=== PATIENT | female | born 1960 | race Caucasian/White ===

== ENCOUNTER 2019-11-05 13:15 | Outpatient (CLI) | payer MEDICARE, SELFPAY ==
--- NOTE | ~2019-11-05 | DEXA_ITS ---
BMD(1) Young-Adult(2) Age-Matched(3) Region (g/cm2) T-score Z-score WHO Classification L1 1.042 -0.8 0.2 Normal L2 1.307 0.8 1.8 Normal L3 1.198 -0.1 0.9 Normal L4 1.135 -0.6 0.4 Normal L1-L4 (L2,L3) 1.095 -0.7 0.3 Normal Trend: L4 Change vs Change vs Measured Age BMD(1) Baseline Previous Date (years) (g/cm2) (%) (%) 11/05/2019 59.6 1.135 baseline - 1 - Statistically 68% of repeat scans fall within 1SD (+- 0.030 g/cm2 for AP Spine L4) 2 - [place] (Combined NHANES (ages 20-30) / OfferWire (ages 20-40)) AP Spine Reference Population (v112) 3 - Matched for Age, Weight (females 25-100 kg), Ethnic 11 - World Health Organization - Definition of Osteoporosis and Osteopenia for Women: Normal = T-score at or above -1.0 SD; Osteopenia = T-score between -1.0 and -2.5 SD; Osteoporosis = T-score at or below -2.5 SD; (WHO definitions only apply when a young healthy Women reference database is used to determine T-scores.) Printed: 11/05/2019 2:05:26 PM (13.60)76:3.00:50.00:12.0 0.00:8.52 0.60x1.05 21.1:%Fat=31.7% 0.00:0.00 0.00:0.00 Verify bone is centered and there is sufficient tissue next to bone. Filename: [id number] Scan Mode: Standard;OneScan 37.0 24/7 Card [id number] BMD(1) Young-Adult(2,7) Age-Matched(3) Region (g/cm2) T-score Z-score WHO Classification Neck Left 0.779 -1.9 -0.7 Osteopenia Right 0.804 -1.7 -0.6 Osteopenia Mean 0.791 -1.8 -0.7 Osteopenia Difference 0.025 0.2 0.2 - Total Left 0.872 -1.1 -0.3 Osteopenia Right 0.858 -1.2 -0.4 Osteopenia Mean 0.865 -1.1 -0.3 Osteopenia Difference 0.014 -0.1 -0.1 - Hip [place] Length Comparison (mm) (Right = 105.6 mm) (Mean = 107.6 mm) (Left = 105.0 mm) Trend: Total Mean Change vs Change vs Measured Age BMD(1) Baseline Previous Date (years) (g/cm2) (%) (%) 11/05/2019 59.6 0.865 -12.4* -12.4* 07/16/2011 51.3 0.987 baseline - * - Indicates significant change based on 95% confidence interval. 1 - Statistically 68% of repeat scans fall within 1SD (+- 0.010 g/cm2 for DualFemur Total) 2 - [place] (Combined NHANES (ages 20-30) / OfferWire (ages 20-40)) Femur Reference Population (v112) 3 - Matched for Age, Weight (females 25-100 kg), Ethnic 7 - DualFemur Total T-score difference is 0.1. Asymmetry is None. 11 - World Health Organization - Definition of Osteoporosis and Osteopenia for Women: Normal = T-score at or above -1.0 SD; Osteopenia = T-score between -1.0 and -2.5 SD; Osteoporosis = T-score at or below -2.5 SD; (WHO definitions only apply when a young healthy Women reference database is used to determine T-scores.) Printed: 11/05/2019 2:05:26 PM (13.60); Filename: [id number]; Right Femur; 17.1:%Fat=25.7%; Neck Angle (deg)= 56; Scan Mode: Standard 37.0 uGy; Left Femur; 17.6:%Fat=25.0%; Neck Angle (deg)= 58; Scan Mode: Standard 37.0 uGy Emprivo [id number] Dear Carter Hernandez, Your patient Kamilah Jeffery completed a BMD test on 11/05/2019 using the Emprivo DXA System (analysis version: 13.60) manufactured by [employer]. The following summarizes the results of our evaluation. PATIENT BIOGRAPHICAL: Name: Kamilah Jeffery
== END 2019-11-05 13:16 | disposition home or self-care (01) ==
PROVIDERS: PCP Internal Medicine; Visit Provider Internal Medicine
DX: M85.80 Other specified disorders of bone density and structure, unspecified site (principal); Z78.0 Asymptomatic menopausal state
CPT/HCPCS: 77080

== ENCOUNTER 2020-02-11 14:24 | Outpatient (CLI) | payer MEDICARE, SELFPAY ==
--- NOTE | ~2020-02-11 | XR_ITS ---
EXAMINATION: XR hip LT min 2V DATE: 02/11/2020 14:43 INDICATION: Left hip pain TECHNIQUE: Anteroposterior and frog-leg lateral views of the left hip were obtained. COMPARISON: None. FINDINGS: Consistent with old fracture deformity along the left pubic body and left superior and inferior pubic rami. Alignment remains essentially anatomic. No acute fracture. No suggested avascular necrosis. Le ft hip joint space is normal. Multiple phleboliths and surgical clips in the pelvis. IMPRESSION: 1. No acute osseous abnormality with normal left hip joint space. Reviewed, dictated and finalized at location A.
--- NOTE | ~2020-02-11 | XR_ITS ---
EXAMINATION: XR lumbar spine 2-3V DATE: 02/11/2020 14:43 INDICATION: Low back pain. TECHNIQUE: Anteroposterior and lateral views of the lumbar spine, and cone-down lateral view of the l umbosacral junction were obtained. COMPARISON: 03/05/2019 FINDINGS: Again seen is L3-L4 posterior spinal fusion with bilateral plate and pedicle screw fixations. 15 degr ee dextroscoliosis measured between T10 and L4. 2 mm anterolisthesis L3 on L4 and L4 on L5. Vertebral body heights are normal. Mild disc height loss at L2-L3 and L4-L5. Reduction of moderate to severe b ilateral lower lumbar facet osteoarthritis. Sacrum and bilateral sacroiliac joints are normal. Multip le surgical clips in the pelvis. IMPRESSION: 1. 15 degree thoracolumbar dextroscoliosis with unchanged instrumented L2-L3 posterior spinal fusion. 2. Slight progression in moderate lumbar spondylosis. Reviewed, dictated and finalized at location A. IMPRESSION: 1. 15 degree thoracolumbar dextroscoliosis with unchanged instrumented L2-L3 po sterior spinal fusion. 2. Slight progression in moderate lumbar spondylosis.
== END 2020-02-11 14:25 | disposition home or self-care (01) ==
LOC: CHSIMG 14:26
PROVIDERS: PCP Internal Medicine; Visit Provider Internal Medicine
DX: M54.9 Dorsalgia, unspecified (principal); M25.552 Pain in left hip
CPT/HCPCS: 72100; 73502

== ENCOUNTER 2020-02-13 13:48 | Outpatient (RCR) | payer MEDICARE, SELFPAY ==
--- NOTE | 2020-02-13 14:42 | PTOPEVAL ---
Thank you for referring Kamilah Jeffery to [facility]. Please review, sign, date and return this plan of care QUIQUE. I agree with and certify that the following plan of care is medically necessary. Referring Physician Date Admitting Provider: Attending Provider: Carter Hernandez MD Referring Provider: *PT Outpatient Evaluation Start: 02/13/20 14:01 Freq: Status: Active Protocol: Document 02/13/20 14:02 [facility] (Rec: 02/13/20 14:34 DAN[facility]A [email or web address]) Evaluation Information Problem Diagnosis back pain with left radiculopathy Onset 01/22/20 Cause oswestry=64% disability Subjective Information Pt. reports several weeks ago Query Text:As Reported By Patient/ she was mowing grass. She Family reports she was mowing a steep ditch and shortly after developed pain into the low back and into the left l.e. down to the ankle. She reports constant sensation of the leg feeling asleep. She reports pain is increased with standing. She reports that she can only walk or stand for 15-20 minute before pain causes her to sit. She reports that she was a very active person prior to injuring herself. Pt. reports that her goal is to decrease her low back pain and left leg pain. Diagnostic Tests X-Rays For This Problem Yes Prior Level of Function Activity Level (Last 3 Months) Occupation unemployed Hand Dominance Right Activity of Daily Living Ability Independent Indoor/Home Mobility Independent Community Mobility Independent Stairs Ability Independent Functional Cognition (Planning, Shopping Independent , Taking Medications) Cooking Yes Cleaning Yes Laundry Yes Shopping Yes Driving Yes Pain Assessment Pain Scale Pain Scale Used Numeric (1 - 10) Self Report Pain Assessment Lower Back Reported Pain Level 8 Pain Description Aching,Numbness,Sharp Pain Radiation Left Leg Pain Frequency Continuous Pain Aggravating Factors Walki
--- NOTE | 2020-03-14 11:27 | PTOPEVAL ---
Thank you for referring Kamilah Jeffery to [facility]. Please review, sign, date and return this plan of care QUIQUE. I agree with and certify that the following plan of care is medically necessary. Referring Physician Date Admitting Provider: Attending Provider: Carter Hernandez MD Referring Provider: *PT Outpatient Evaluation Start: 02/13/20 14:01 Freq: Status: Active Protocol: Document 03/14/20 10:00 [facility] (Rec: 03/14/20 11:23 [facility] [email or web address]) Therapy Assessment Status Assessment Status Assessment Status Re-evaluation Evaluation Information Problem Diagnosis low back pain Additional Evaluation Detail lefs = 35% oswestry = 50% Subjective Information patient reports she feels Query Text:As Reported By Patient/ Alright this date. she Family reports she has pain in the low back and down the L LE that grabs in her leg with increased activities. she reports she feels 50% improved or better since her initial evaluation. Pain Assessment Timing of Pain Assessment Timing of Pain Assessment Assessment Pain Scale Pain Scale Used Numeric (1 - 10) Self Report Pain Assessment Lower Back Reported Pain Level 4 Lowest Pain Intensity 4 Greatest Pain Intensity 7 Pain Score Pain Score 4: Self Report Cervical and Lumbar ROM Lumbar ROM Lumbar Flexion Active Ankle Query Text:Hands to: Lumbar Extension (0-40) 10 Query Text:Active in Degrees Lumbar Lateral Flexion Right (0-40) 40 Query Text:Active in Degrees Lumbar Lateral Flexion Left (0-40) 40 Query Text:Active in Degrees Lower Extremity Muscle Strength Testing General Lower Extremity Strength Gross Lower Extremity Strength R hip flex = 4+/5, L hip flex = 4/5. R hip abd = 4-/5, L hip abd = 4+/5. B hip ext = 4-/5 B knee ext = 5/5 R knee flex = 5/5, L knee flex = 4+/5 Muscle Length Testing Muscle Length Testing Piriformis w/Hip Flexion >90 Degrees (R) WFL,(L) WFL Left Hamstring Length 10 Query Text:(90 - 90 Position) Right Hamstring Length 10 Query Text:(90 - 90 Position) Palpation Assessment Palpation Palpation moderate tightness of the bilateral lumbar paraspinals patient presents with
== END 2020-03-18 23:59 | disposition home or self-care (01) ==
LOC: CHSPT 13:48
PROVIDERS: PCP Internal Medicine; Visit Provider Internal Medicine
DX: M54.9 Dorsalgia, unspecified (principal); M54.17 Radiculopathy, lumbosacral region
CPT/HCPCS: 97014; 97110; 97140; 97161; G0283

== ENCOUNTER 2020-03-25 07:17 | Outpatient (CLI) | payer MEDICARE, SELFPAY ==
--- NOTE | ~2020-03-25 | MR_ITS ---
EXAMINATION: MR lumbar spine wo con DATE: 03/25/2020 08:16 INDICATION: Low back pain. TECHNIQUE: Magnetic resonance imaging (MRI) of the lumbar spine was performed without intravenous con trast. Sequences included sagittal T2-weighted FSE, sagittal T2-weighted FS FSE, sagittal T1-weighted FSE, and axial T2-weighted FSE. COMPARISON: Lumbar spine MRI 04/11/2013 FINDINGS: There is 3 mm anterolisthesis of L3 on L4 and L4 on L5. There is a Schmorl's node of L4 inf erior endplate. There are changes of posterior fusion procedure at L2-L3 with pedicle screws. There i s moderately decreased disc height at L2-L3 and mildly decreased disc height at L3-L4 and L4-L5. The distal spinal cord signal intensity is normal. The conus medullaris is at L1. The following disc leve ls are specifically discussed: L1-L2: The disc does not extend beyond the endplate margin. There is mild bilateral facet joint osteo arthritis. There is no neural foraminal stenosis. There is no central canal stenosis. L2-L3: The disc is mildly bulging. There is mild right facet joint hypertrophy. There is mild right n eural foraminal stenosis. There is no central canal stenosis. L3-L4: The disc is bulging and has an annular fissure. There is severe bilateral facet joint osteoart hritis. There is mild bilateral neural foraminal stenosis. There is moderate central canal stenosis. L4-L5: The disc is bulging with superimposed left foraminal extrusion. There is severe bilateral face t joint osteoarthritis. There is moderate bilateral neural foraminal stenosis. There is mild central canal stenosis. L5-S1: The disc is bulging and has an annular fissure. There is mild bilateral facet joint osteoarthr itis. There is mild bilateral neural foraminal stenosis. There is no central canal stenosis. IMPRESSION: 1. Moderate lumbar spondylosis with interval worsening at L3-L4 and L4-L5. 2. Posterior fusion procedure at L2-L3. Reviewed, dictated and finalized at location A.
== END 2020-03-25 07:18 | disposition home or self-care (01) ==
LOC: CHSIMG 07:18
PROVIDERS: PCP Internal Medicine; Visit Provider Nurse Practitioner Family
DX: M54.5 Low back pain (principal); M54.16 Radiculopathy, lumbar region
CPT/HCPCS: 72148

== ENCOUNTER 2021-08-13 10:01 | Outpatient (CLI) | payer MEDICARE, SELFPAY ==
--- NOTE | ~2021-08-13 | XR_ITS ---
EXAMINATION:XR_[id number]_CR DATE: 08/13/2021 10:24 INDICATION: Neck pain TECHNIQUE: AP and lateral views of the cervical spine are obtained. COMPARISON: CT, 09/08/2016 FINDINGS: There are changes of anterior fusion at C6-7. Interbody devices are present at C5-6 and C6- 7. There are 2 mm of stable retrolisthesis of C5 on C6. The vertebral body heights are maintained. Th ere is no fracture. There is loss of intervertebral disc space height at C3-4. The odontoid is intact . Prevertebral soft tissues are normal. IMPRESSION: 1. Changes of anterior fusion and mild spondylosis without acute findings. Reviewed, dictated and finalized at location A. GER EXCHANGE
[2021-08-13 10:59] LABS: Alanine Aminotransferase 17 U/L (14-59); Albumin Level 3.9 g/dL (3.4-5.0); Alkaline Phosphatase 70 U/L (46-116); Anion Gap 10 mmol/L (8-16); Aspartate Amino Transferase 15 U/L (15-37); Bilirubin,Total 0.4 mg/dL (0.00-1.00); Blood Urea Nitrogen 16 mg/dL (7-18); Calcium 9.2 mg/dL (8.5-10.1); Carbon Dioxide 30 mmol/L (21-32); Chloride 100 mmol/L (98-108); Cholesterol 215 mg/dL (0-200); Estimated Glomerular Filt Rate 53; Glucose 97 mg/dL (70-99); HDL Direct 49 mg/dL (40-60); LDL Cholesterol Calculated 141 mg/dL (<130); Osmolality Calculated 291 mOsm/kg (285-295); Potassium 4.3 mmol/L (3.5-5.1); Sodium 140 mmol/L (136-145); Total Protein 6.7 g/dL (6.4-8.2); Triglycerides 126 mg/dL (0-150)
== END 2021-08-13 10:02 | disposition home or self-care (01) ==
PROVIDERS: PCP Internal Medicine; Visit Provider Internal Medicine
DX: E78.5 Hyperlipidemia, unspecified (principal); M54.2 Cervicalgia
CPT/HCPCS: 36415; 72040; 80053; 80061

== ENCOUNTER 2021-08-18 12:39 | Outpatient (RCR) | payer MEDICARE, MEDICAID, SELFPAY ==
--- NOTE | 2021-08-18 14:02 | PTOPEVAL ---
Thank you for referring Kamilah Jeffery to [facility].? The patient is scheduled to be seen for therapy? ____x/week for ___ weeks. Please review, sign, date and return this plan of care QUIQUE. I agree with and certify that the following plan of care is medically necessary. Referring Physician Date Admitting Provider: Attending Provider: Carter Hernandez MD Referring Provider: *PT Outpatient Evaluation Start: 08/18/21 13:04 Freq: Status: Active Protocol: Document 08/18/21 13:05 [facility] (Rec: 08/18/21 14:02 [facility] [email or web address]) Therapy Assessment Status Assessment Status Assessment Status Evaluation Evaluation Information Problem Diagnosis neck pain Onset 06/18/21 Additional Evaluation Detail NDI - 40% functionally declined Subjective Information patient reports she has been Query Text:As Reported By Patient/ having shoulder and neck pain Family for about 2 months. she reports she noticed having pain in the neck and shoulders after raking her yard. she reports other than that no other change in activity or specific injury. she reports she has also been very stressed lately due to some personal and family medical issues. she reports she has increased pain and symptoms when she is stressed out. she reports she has tingles in the L shoulder. patient reports difficulty with turning neck/ head to look behind her (ie. while driving). Prior Level of Function Comments Additional Prior Level of Function prior to a few months ago, no Comments issues. she reports she does have a history of anterior cervical fusion back in 2009. Pain Assessment Timing of Pain Assessment Timing of Pain Assessment Assessment Pain Scale Pain Scale Used Numeric (1 - 10) Self Report Pain Assessment Neck Reported Pain Level 5 Pain Radiation Left Shoulder Pain Frequency Acute,Continuous Pain Score Pain Score 5: Self Report Interventions Used Interventions Used By Clinicians Activity or ADL's,Education, Exercise Cervical and Lumbar ROM Cervical ROM Cervical Flexion (0-60) 43 Query Text:Active in Degrees
== END 2021-09-02 23:59 | disposition home or self-care (01) ==
LOC: CHSPT 12:39
PROVIDERS: PCP Internal Medicine; Visit Provider Internal Medicine
DX: M54.2 Cervicalgia (principal)
CPT/HCPCS: 97014; 97110; 97140; 97161; G0283

== ENCOUNTER 2021-11-07 07:14 | Outpatient (CLI) | payer MEDICARE, MEDICAID, SELFPAY ==
[2021-11-07 07:36] LABS: Basophils Absolute Auto 0.06 K/mm3 (0.00-0.10); Basophils Percent Auto 0.8 % (0.0-1.0); Eosinophils Absolute Auto 0.17 K/mm3 (0.02-0.50); Eosinophils Percent Auto 2.3 % (1.0-6.0); Hematocrit 40.4 % (35.0-49.0); Hemoglobin 13.1 g/dL (12.0-15.0); Immature Granulocyte Absolute 0.02 K/mm3 (0.00-0.00); Immature Granulocyte Percent A 0.3 % (0.0-0.0); Lymphocytes Absolute Auto 3.01 K/mm3 (1.10-4.50); Lymphocytes Percent Auto 39.9 % (18.0-42.0); Mean Corpuscular HGB Conc 32.4 g/dL (32.0-36.0); Mean Corpuscular Hemoglobin 29.6 pg (27.0-31.0); Mean Corpuscular Volume 91.2 fL (78.0-102.0); Mean Platelet Volume 9.7 fl (9.2-11.8); Monocytes Absolute Auto 0.62 K/mm3 (0.10-0.90); Monocytes Percent Auto 8.2 % (2.0-11.0); Neutrophils Absolute Auto 3.7 K/mm3 (1.7-7.2); Neutrophils Percent Auto 48.5 % (50.0-70.0); Platelet Count Result 313 K/mm3 (150-420); Red Blood Count 4.43 M/mm3 (4.20-5.40); Red Cell Distribution Width 12.7 % (11.6-14.4); White Blood Count 7.5 K/mm3 (4.8-10.8)
[2021-11-07 08:04] LABS: Alanine Aminotransferase 21 U/L (14-59); Albumin Level 3.7 g/dL (3.4-5.0); Alkaline Phosphatase 64 U/L (46-116); Anion Gap 12 mmol/L (8-16); Aspartate Amino Transferase 13 U/L (15-37); Bilirubin,Total 0.3 mg/dL (0.00-1.00); Blood Urea Nitrogen 14 mg/dL (7-18); Calcium 9.2 mg/dL (8.5-10.1); Carbon Dioxide 27 mmol/L (21-32); Chloride 103 mmol/L (98-108); Cholesterol 227 mg/dL (0-200); Estimated Glomerular Filt Rate 54; Glucose 93 mg/dL (70-99); HDL Direct 47 mg/dL (40-60); LDL Cholesterol Calculated 150 mg/dL (<130); Osmolality Calculated 294 mOsm/kg (285-295); Potassium 4.2 mmol/L (3.5-5.1); Sodium 142 mmol/L (136-145); Thyroid Stimulating Hormone 2.38 uIU/mL (0.36-3.74); Total Protein 6.4 g/dL (6.4-8.2); Triglycerides 148 mg/dL (0-150)
== END 2021-11-07 07:15 | disposition home or self-care (01) ==
LOC: CHSLAB 07:16
PROVIDERS: PCP Internal Medicine; Visit Provider Internal Medicine
DX: E78.5 Hyperlipidemia, unspecified (principal)
CPT/HCPCS: 36415; 80053; 80061; 84443; 85025

== ENCOUNTER 2021-11-16 11:54 | Outpatient (CLI) | payer MEDICARE, MEDICAID, SELFPAY ==
--- NOTE | ~2021-11-16 | MM_ITS ---
EXAMINATION: MM screening ham BI w bret HISTORY: Screening mammogram TECHNIQUE: Craniocaudal and mediolateral oblique 3-D tomosynthesis images were obtained and synthetic 2-D images were generated. CAD analysis was submitted and interpreted. COMPARISON: No prior mammogram is available for comparison at this institution. BREAST PARENCHYMAL COMPOSITION: There are scattered areas of fibroglandular density. FINDINGS: There is no evidence of suspicious mass, calcification, or architectural distortion to sugg est malignancy in either breast. There has been no suspicious interval change. IMPRESSION: 1. No mammographic evidence of malignancy. 2. Recommend routine screening mammography in one year. BI-RADS Category 1: Negative Reviewed, dictated and finalized at location A.
== END 2021-11-16 11:55 | disposition home or self-care (01) ==
LOC: CHSIMG 11:55
PROVIDERS: PCP Internal Medicine; Visit Provider Internal Medicine
DX: Z12.31 Encounter for screening mammogram for malignant neoplasm of breast (principal)
CPT/HCPCS: 77063; 77067

== ENCOUNTER 2022-03-22 12:33 | Outpatient (CLI) | payer MEDICARE, MEDICAID, SELFPAY ==
--- NOTE | ~2022-03-22 | CT_ITS ---
EXAMINATION: CT lung screening DATE: 03/22/2022 13:03 INDICATION: Personal history of nicotine dependence, current smoker with 30 pack year history TECHNIQUE: Computed tomography (CT) of the chest was performed without intravenous contrast. The dose -length product (DLP) was 98.87 mGy-cm. Automated exposure control and iterative reconstruction techn ique were employed. COMPARISON: None FINDINGS: There is mild emphysema. There are scattered nodules of the lungs which measure up to 3 mm. The lungs are free of acute opacities. No pleural effusion or pneumothorax. No pathologically enlarg ed thoracic lymph nodes are identified. The heart size is normal. Calcified coronary artery atheroscl erosis is noted. Surgical changes are noted in the cervical and lumbar spine. There is mild thoracic spondylosis. IMPRESSION: 1. Lung-RADS category 2: Benign appearance or behavior. Continue annual screening with noncontrast lo w-dose chest CT in 12 months. Reviewed, dictated and finalized at location B. IMPRESSION: 1. Lung-RADS category 2: Benign appearance or behavior. Continue annual screeni ng with noncontrast low-dose chest CT in 12 months.
--- NOTE | ~2022-03-22 | DEXA_ITS ---
Bone Density Report Name: MARCEL KHAN Age: 61 Sex: Female Ethnicity: White Date of : 1960 Indication: postmenopausal; screening for osteoporosis; height loss; prior fracture; hysterectomy; rheumatoid arthritis; Referring Provider: Carter Hernandez Study: Bone densitometry was performed. Exam Date: March 22, 2022 Accession number: [id number] Bone Density: Region BMD T-score Z-score Classification AP Spine(L1, L4) 0.921 -1.1 0.5 Osteopenia Femoral Neck (Left) 0.659 -1.7 -0.3 Osteopenia Total Hip (Left) 0.790 -1.2 -0.2 Osteopenia Femoral Neck (Right) 0.631 -2.0 -0.6 Osteopenia Total Hip (Right) 0.787 -1.3 -0.2 Osteopenia Femoral Neck Mean 0.645 -1.8 -0.5 Osteopenia Total Hip Mean 0.789 -1.3 -0.2 Osteopenia World Health Organization criteria for BMD impression classify patients as: Normal (T-score at or above -1.0), Osteopenia (T-score between -1.0 and -2.5), or Osteoporosis (T-score at or below -2.5). 10-year Fracture Risk(1): Major Osteoporotic Fracture 22% Hip Fracture 5.2% Reported Risk Factors: [place] (), Neck BMD=0.631, BMI=25.6, previous fracture, smoking, rheumatoid arthritis (1) FRAX(R) Version 3.08. Fracture probability calculated for an untreated patient. Fracture probability may be lower if the patient has received treatment. Clinical Information Provided by Patient: Has had a low trauma fracture Smokes Has rheumatoid arthritis Has the following medical conditions: Hysterectomy Patient maximum height was 66 Menopause Age: 50 No regular weight bearing exercise Drinks caffeinated beverages Onset of menses at age 13 Number of children 5 Impression: The patient has low bone mass, based on the Right Femoral Neck T-score. The patient has risk factors, including: smoking, previous fracture. Discussion: BONE DENSITY IS LOW AT ONE OR MORE SKELETAL SITES. This patient's lowest T-score is low at one or more skeletal sites. It meets the World Health Organization's (WHO) criteria for ?low bone mass? (T-score between -1.0 and -2.5). The patient's 10-year risk of fracture as calculated by FRAX is less than the threshold where pharmacological therapy is recommended by the National Osteoporosis Foundation (NOF). However, all treatment decisions require clinical judgment and consideration of individual patient factors, including patient preferences, comorbidities, previous drug use, risk factors not captured in the FRAX model (e.g., frailty, falls, vitamin D deficiency, increased bone turnover, interval significant decline in bone density) and possible under or overestimation of fracture risk by FRAX. The patient should follow a healthful lifestyle (good nutrition with adequate calcium and vitamin D, and appropriate weight-bearing exercise). Fol
[2022-03-22 13:07] LABS: Alanine Aminotransferase 17 U/L (14-59); Albumin Level 3.8 g/dL (3.4-5.0); Alkaline Phosphatase 73 U/L (46-116); Anion Gap 7 mmol/L (8-16); Aspartate Amino Transferase 15 U/L (15-37); Bilirubin,Total 0.5 mg/dL (0.00-1.00); Blood Urea Nitrogen 13 mg/dL (7-18); Calcium 8.9 mg/dL (8.5-10.1); Carbon Dioxide 28 mmol/L (21-32); Chloride 102 mmol/L (98-108); Cholesterol 196 mg/dL (0-200); Estimated Glomerular Filt Rate 56; Glucose 109 mg/dL (70-99); HDL Direct 54 mg/dL (40-60); LDL Cholesterol Calculated 121 mg/dL (<130); Osmolality Calculated 285 mOsm/kg (285-295); Potassium 3.8 mmol/L (3.5-5.1); Sodium 137 mmol/L (136-145); Total Protein 6.7 g/dL (6.4-8.2); Triglycerides 106 mg/dL (0-150)
== END 2022-03-22 12:34 | disposition home or self-care (01) ==
LOC: CHSIMG 12:36
PROVIDERS: PCP Internal Medicine; Visit Provider Internal Medicine
DX: M81.0 Age-related osteoporosis without current pathological fracture (principal); Z12.2 Encounter for screening for malignant neoplasm of respiratory organs; Z87.891 Personal history of nicotine dependence; E78.5 Hyperlipidemia, unspecified; R73.9 Hyperglycemia, unspecified
CPT/HCPCS: 36415; 71271; 77080; 80053; 80061; 83036

== ENCOUNTER 2022-08-10 10:48 | Outpatient (CLI) | payer MEDICARE, MEDICAID, SELFPAY ==
[2022-08-10 11:38] LABS: Influenza A QL RT-PCR Negative (Negative); Influenza B QL RT-PCR Negative (Negative); SARS-CoV-2 RNA PCR Negative (Negative)
[2022-08-10 11:45] LABS: RSV RNA, RT-PCR Negative (Negative)
== END 2022-08-10 10:49 | disposition home or self-care (01) ==
PROVIDERS: PCP Internal Medicine; Visit Provider Internal Medicine
DX: J32.9 Chronic sinusitis, unspecified (principal); R51.9 Headache, unspecified; R05.9 Cough, unspecified; Z20.822 Contact with and (suspected) exposure to COVID-19
CPT/HCPCS: 87637

== ENCOUNTER 2022-09-24 14:03 | Outpatient (CLI) | payer MEDICARE, MEDICAID, SELFPAY ==
[2022-09-24 14:18] LABS: Basophils Absolute Auto 0.03 K/mm3 (0.00-0.10); Basophils Percent Auto 0.3 % (0.0-1.0); Eosinophils Absolute Auto 0.04 K/mm3 (0.02-0.50); Eosinophils Percent Auto 0.4 % (1.0-6.0); Hematocrit 37.4 % (35.0-49.0); Hemoglobin 12.4 g/dL (12.0-15.0); Immature Granulocyte Absolute 0.02 K/mm3 (0.00-0.00); Immature Granulocyte Percent A 0.2 % (0.0-0.0); Lymphocytes Absolute Auto 2.11 K/mm3 (1.10-4.50); Mean Corpuscular HGB Conc 33.2 g/dL (32.0-36.0); Mean Corpuscular Hemoglobin 29.6 pg (27.0-31.0); Mean Corpuscular Volume 89.3 fL (78.0-102.0); Mean Platelet Volume 9.7 fl (9.2-11.8); Monocytes Absolute Auto 0.47 K/mm3 (0.10-0.90); Monocytes Percent Auto 5.1 % (2.0-11.0); Neutrophils Absolute Auto 6.5 K/mm3 (1.7-7.2); Platelet Count Result 305 K/mm3 (150-420); Red Blood Count 4.19 M/mm3 (4.20-5.40); Red Cell Distribution Width 12.9 % (11.6-14.4); White Blood Count 9.2 K/mm3 (4.8-10.8)
[2022-09-24 14:19] LABS: Add Urine Microscopic? YES; Appearance Urine Clear (Clear); Bilirubin Urine Negative (Negative); Blood Urine 1+ (Negative); Color Urine Light Yellow (Yellow); Glucose Urine UA Negative (Negative); Ketones Urine Negative (Negative); Leukocyte Esterase Ur Negative LEU/UL (Negative); Nitrate Urine Negative (Negative); Protein Urine Negative (Negative); Urobilinogen Urine 0.2 mg/dL (0.2-1.0); pH Urine 5.5 (5.0-8.0)
[2022-09-24 14:26] LABS: Bacteria Urine Trace /hpf; Squamous Epithelial Cell Urine Few /hpf (Few); WBC Urine 0-3 /hpf (0-3)
[2022-09-24 14:58] LABS: Alanine Aminotransferase 13 U/L (14-59); Albumin Level 3.8 g/dL (3.4-5.0); Alkaline Phosphatase 68 U/L (46-116); Amylase 54 U/L (25-115); Anion Gap 7 mmol/L (8-16); Aspartate Amino Transferase 14 U/L (15-37); Bilirubin,Total 0.3 mg/dL (0.00-1.00); Blood Urea Nitrogen 21 mg/dL (7-18); Calcium 9.1 mg/dL (8.5-10.1); Carbon Dioxide 31 mmol/L (21-32); Chloride 104 mmol/L (98-108); Creatine Kinase 88 U/L (26-192); Estimated Glomerular Filt Rate 58; Glucose 115 mg/dL (70-99); Lipase 41 U/L (16-77); Osmolality Calculated 298 mOsm/kg (285-295); Potassium 4.4 mmol/L (3.5-5.1); Sodium 142 mmol/L (136-145); Total Protein 6.6 g/dL (6.4-8.2); Troponin I 5.8 ng/L (0.00-60.4)
== END 2022-09-24 14:04 | disposition home or self-care (01) ==
LOC: CHSLAB 14:07
PROVIDERS: PCP Internal Medicine; Visit Provider Nurse Practitioner Family
DX: R10.13 Epigastric pain (principal); R07.9 Chest pain, unspecified
CPT/HCPCS: 36415; 80053; 81001; 82150; 82550; 82553; 83690; 84484; 85025; 87086

== ENCOUNTER 2023-03-04 12:40 | Outpatient (CLI) | payer MEDICARE, MEDICAID, SELFPAY ==
--- NOTE | ~2023-03-04 | MM_ITS ---
EXAMINATION: MM screening ham BI w bret HISTORY: Screening mammogram, family history of breast cancer in her mother. TECHNIQUE: Craniocaudal and mediolateral oblique 3-D tomosynthesis images were obtained and synthetic 2-D images were generated. CAD analysis was submitted and interpreted. COMPARISON: 11/16/2021, 07/30/2019, 08/08/2017 BREAST PARENCHYMAL COMPOSITION: There are scattered areas of fibroglandular density. FINDINGS: No suspicious mass, calcification, or architectural distortion are identified in either jamal ast to suggest malignancy. There has been no suspicious interval change. IMPRESSION: 1. No mammographic evidence of malignancy. 2. Recommend routine screening mammography in one year. BI-RADS Category 1: Negative Reviewed, dictated and finalized at location A.
== END 2023-03-04 12:41 | disposition home or self-care (01) ==
PROVIDERS: PCP Internal Medicine; Visit Provider Internal Medicine
DX: Z12.31 Encounter for screening mammogram for malignant neoplasm of breast (principal)
CPT/HCPCS: 77063; 77067

== ENCOUNTER 2023-05-04 10:14 | Outpatient (CLI) | payer MEDICARE, SELFPAY ==
--- NOTE | ~2023-05-04 | CT_ITS ---
EXAMINATION: CT abdomen pelvis wo con DATE: 05/04/2023 11:28 INDICATION: Right flank pain TECHNIQUE: Computed tomography (CT) of the abdomen and pelvis was performed without intravenous contr ast. The dose-length product (DLP) was 182.48 mGy-cm. Automated exposure control and iterative recons truction technique were employed. COMPARISON: 07/18/2017 FINDINGS: Minimal dependent atelectasis is present in the lung bases. The heart size is normal. Punct ate calcifications in an otherwise normal spleen likely represent healed granulomatous disease. The l iver, gallbladder, pancreas, and adrenal glands are normal. The kidneys are unremarkable. No stones a re identified in the kidneys, ureters, or bladder. No hydronephrosis or hydroureter. Streak artifact from lumbar fusion hardware slightly limits evaluation of the proximal ureters. No pathologically enl arged abdominal or pelvic lymph nodes are identified. No free intraperitoneal gas or evidence of george l obstruction. A moderate volume of colonic stool is present. There are healed fractures of the left inferior and superior pubic rami. There is severe lumbar spondylosis. There are changes of posterior fusion at L2-3. IMPRESSION: 1. No CT correlate for the patient's symptoms. Reviewed, dictated and finalized at location B.
--- NOTE | ~2023-05-04 | CT_ITS ---
EXAMINATION: CT lung screening DATE: 05/04/2023 11:28 INDICATION: Personal history nicotine dependence, current smoker with 31 pack year history TECHNIQUE: Computed tomography (CT) of the chest was performed without intravenous contrast. The dose -length product (DLP) was 75.47 mGy-cm. Automated exposure control and iterative reconstruction techn Tradoriaue were employed. COMPARISON: 03/22/2022 FINDINGS: There is mild emphysema. Again seen are scattered pulmonary nodules of the lungs measuring up to 3 mm. The lungs are free of acute opacities. No pleural effusion or pneumothorax. No pathologic ally enlarged thoracic lymph nodes are identified. The heart size is normal. Calcified pulmonary nodu les and calcified right hilar and mediastinal lymph nodes are consistent with old granulomatous disea se. Calcified coronary artery atherosclerosis is noted. There is mild thoracic spondylosis. IMPRESSION: 1. Lung-RADS category 2: Benign appearance or behavior. Continue annual screening with noncontrast lo w-dose chest CT in 12 months. Reviewed, dictated and finalized at location F. IMPRESSION: 1. Lung-RADS category 2: Benign appearance or behavior. Continue annual screeni ng with noncontrast low-dose chest CT in 12 months.
[2023-05-04 10:28] LABS: Basophils Absolute Auto 0.06 K/mm3 (0.00-0.10); Basophils Percent Auto 0.7 % (0.0-1.0); Eosinophils Percent Auto 1.2 % (1.0-6.0); Hematocrit 37.4 % (35.0-49.0); Hemoglobin 12.6 g/dL (12.0-15.0); Immature Granulocyte Absolute 0.03 K/mm3 (0.00-0.00); Immature Granulocyte Percent A 0.4 % (0.0-0.0); Lymphocytes Absolute Auto 2.64 K/mm3 (1.10-4.50); Lymphocytes Percent Auto 31.8 % (18.0-42.0); Mean Corpuscular HGB Conc 33.7 g/dL (32.0-36.0); Mean Corpuscular Hemoglobin 30.4 pg (27.0-31.0); Mean Corpuscular Volume 90.1 fL (78.0-102.0); Mean Platelet Volume 9.6 fl (9.2-11.8); Monocytes Percent Auto 7.2 % (2.0-11.0); Neutrophils Absolute Auto 4.9 K/mm3 (1.7-7.2); Neutrophils Percent Auto 58.7 % (50.0-70.0); Platelet Count Result 282 K/mm3 (150-420); Red Blood Count 4.15 M/mm3 (4.20-5.40); Red Cell Distribution Width 13.1 % (11.6-14.4); White Blood Count 8.3 K/mm3 (4.8-10.8)
[2023-05-04 10:54] LABS: Alanine Aminotransferase 22 U/L (14-59); Albumin Level 3.9 g/dL (3.4-5.0); Alkaline Phosphatase 64 U/L (46-116); Amylase 66 U/L (25-115); Anion Gap 6 mmol/L (8-16); Aspartate Amino Transferase 21 U/L (15-37); Bilirubin,Total 0.4 mg/dL (0.00-1.00); Blood Urea Nitrogen 17 mg/dL (7-18); Calcium 9.3 mg/dL (8.5-10.1); Carbon Dioxide 29 mmol/L (21-32); Chloride 104 mmol/L (98-108); Estimated Glomerular Filt Rate 56; Glucose 98 mg/dL (70-99); Lipase 93 U/L (16-77); Osmolality Calculated 289 mOsm/kg (285-295); Potassium 4.2 mmol/L (3.5-5.1); Sodium 139 mmol/L (136-145); Total Protein 7.1 g/dL (6.4-8.2)
[2023-05-04 11:12] LABS: CRP < 0.5 mg/dL (0.0-0.9)
== END 2023-05-04 10:15 | disposition home or self-care (01) ==
PROVIDERS: PCP Internal Medicine; Visit Provider Internal Medicine
DX: R10.9 Unspecified abdominal pain (principal); R31.29 Other microscopic hematuria; Z12.2 Encounter for screening for malignant neoplasm of respiratory organs; Z87.891 Personal history of nicotine dependence
CPT/HCPCS: 36415; 71271; 74176; 80053; 82150; 83690; 85025; 86140

== ENCOUNTER 2024-05-02 16:13 | Emergency (ER) | payer MEDICARE, MEDICAID, SELFPAY ==
[2024-05-02 16:24] VITALS: BP 123/82; PULSE 71; RESP 20; TEMP 36.6; O2SAT 95
--- NOTE | 2024-05-02 16:29 | ED.WOUNDLAC ---
HPI - Wound/Laceration General Chief Complaint: Wound/Laceration Stated Complaint: R FA LAC Source: patient Mode of arrival: ambulatory History of Present Illness HPI narrative: patient is a 64 ft with a significant past history that presents today for a laceration. Patient has a 5 cm laceration to left dorsal forearm. She states that she was doing tobias and something came down and cut her skin open. She has prior by a mask for this. They cleaned the wound and taped it up but they did not suture it. She will need sutures. Onset (ago): minute(s) Location: other ( Left dorsal forearm) Extremity Location: Left: forearm Place: home Patient tetanus UTD: Yes Context: accidental Associated symptoms: none Related Data Home Medications Medication Instructions Recorded Confirmed atorvastatin 10 mg tablet 10 mg PO HS 05/02/24 05/02/24 buspirone 15 mg tablet 15 mg PO BID 05/02/24 05/02/24 duloxetine 30 mg capsule,delayed 30 mg PO BID 05/02/24 05/02/24 release meloxicam 15 mg tablet 15 mg PO BID 05/02/24 05/02/24 pantoprazole 40 mg tablet,delayed 40 mg PO DAILY 05/02/24 05/02/24 release risperidone 0.5 mg tablet 0.5 mg PO HS 05/02/24 05/02/24 Allergies Allergy/AdvReac Type Severity Reaction Status Date / Time atorvastatin Allergy Unknown Unknown Verified 05/02/24 16:32 clarithromycin Allergy Unknown Unknown Verified 05/02/24 16:32 iodine Allergy Unknown Unknown Verified 05/02/24 16:32 Penicillins Allergy Unknown Unknown Verified 05/02/24 16:32 Sulfa (Sulfonamide Allergy Unknown Unknown Verified 05/02/24 16:32 Antibiotics) sulfamethoxazole Allergy Unknown Hives / Verified 05/02/24 16:32 RASH topiramate Allergy Unknown Unknown Verified 05/02/24 16:32 trimethoprim Allergy Unknown Hives / Verified 05/02/24 16:32 RASH Review of Systems Review of Systems: All systems reviewed & are unremarkable except as noted in HPI and below Constitutional: Constitutional: Reports as per HPI Eyes: Eyes: Reports no additional eye complaints ENT: Reports system reviewed and no additional complaints, except as documented Cardiovascular: Cardiovascular: Reports no additional cardiovascular complaints Respiratory: Respiratory: Reports no additional respiratory complaints Gastrointestinal: Gastrointestinal: Reports no additional gastrointestinal complaints Genitourinary: Genitourinary: Reports no additional female genitourinary complaints Musculoskeletal: Musculoskeletal: Reports no additional musculoskeletal complaints Integumentary/Breasts: Skin/Breast: Reports as per HPI Comments: 5 cm laceration to dorsal forearm left Neurologic: Reports system reviewed and no additional complaints, except as documented Psychiatric: Psychiatric: Reports no additional psychiatric complaints Endocrine: Endocrine: Reports no additional endocrine complaints Hematologic/Lymphatic: Hematologic/Lymphatic: Reports no additional hematologic/lymphatic complaints Allergic/Immunologic: Allergic/Immunologic: Reports no additional allergic/immunologic complaints PMFSH Family History Family History Father Family history of malignant neoplasm Mother Family history of malignant neoplasm Other Cerebrovascular accident Diabetes mellitus Family history of cardiovascular disease Hypertension Social History Social History Smoking status: Former smoker Exam Const: General: healthy appearing Nutritional Appearance: well nourished Orientation/consciousness: patient oriented x3 HENMT: Head: normal to inspection Ears: external ears normal Face/Nose/Sinus: Normal external nose present Face and sinus: normal facial exam Eyes: Conjunctivae: conjunctivae normal Pupils: Equal, round and reactive pupils present EOM: EOMs intact bilaterally Neck: Neck: normal visual inspection Chest: Chest palpation & inspect
[2024-05-02] MEDS: TETANUS,DIPHTHERIA,AC PERTUSSIS ADULT 0.5 ML (ADACEL) IM (16:37)
== END 2024-05-02 17:35 | disposition home or self-care (01) ==
LOC: CHSED 16:44
PROVIDERS: Emergency Provider Family Medicine; PCP Internal Medicine
DX: S51.811A Laceration without foreign body of right forearm, initial encounter (principal); Z23 Encounter for immunization; Z79.899 Other long term (current) drug therapy; Z79.1 Long term (current) use of non-steroidal anti-inflammatories (NSAID); Z87.891 Personal history of nicotine dependence; W45.8XXA Other foreign body or object entering through skin, initial encounter
CPT/HCPCS: 12002; 90471; 90715; 99282

== ENCOUNTER 2024-11-08 12:11 | Outpatient (CLI) | payer MEDICARE, MEDICAID, SELFPAY ==
[2024-11-08 12:27] LABS: Hematocrit 39.5 % (35.0-49.0); Hemoglobin 12.9 g/dL (12.0-15.0); Mean Corpuscular HGB Conc 32.7 g/dL (32-36); Mean Corpuscular Hemoglobin 29.1 pg (27.0-31.0); Mean Platelet Volume 9.1 fl (9.2-11.8); Platelet Count Result 379 K/mm3 (150-420); Red Blood Count 4.44 M/mm3 (4.20-5.40); Red Cell Distribution Width 12.5 % (11.6-14.4); White Blood Count 8.6 K/mm3 (4.8-10.8)
[2024-11-08 12:28] LABS: Add Urine Microscopic? NO; Appearance Urine Clear (Clear); Bilirubin Urine Negative (Negative); Blood Urine Trace-intact (Negative); Color Urine Light Yellow (Yellow); Glucose Urine UA Negative (Negative); Ketones Urine Negative (Negative); Leukocyte Esterase Ur Negative (Negative); Nitrate Urine Negative (Negative); Protein Urine Negative (Negative); Specific Grav Ur <= 1.005 (1.010-1.020); Urobilinogen Urine 0.2 mg/dL (0.2-1.0)
[2024-11-08 13:17] LABS: Alanine Aminotransferase 20 U/L (14-59); Alkaline Phosphatase 88 U/L (46-116); Anion Gap 7 mmol/L (4-12); Aspartate Amino Transferase 13 U/L (15-37); Bilirubin,Total 0.3 mg/dL (0.00-1.00); Blood Urea Nitrogen 15 mg/dL (7-18); Calcium 9.6 mg/dL (8.5-10.1); Carbon Dioxide 30 mmol/L (21-32); Chloride 104 mmol/L (98-108); Cholesterol 212 mg/dL (0-200); Creatine Kinase 142 U/L (26-192); Estimated Glomerular Filt Rate 55; Glucose 98 mg/dL (70-99); HDL Direct 56 mg/dL (40-60); LDL Cholesterol Calculated 138 mg/dL (<130); Magnesium 2.1 mg/dL (1.8-2.4); Osmolality Calculated 292 mOsm/kg (285-295); Phosphorus 4.1 mg/dL (2.6-4.7); Potassium 4.3 mmol/L (3.5-5.1); Sodium 141 mmol/L (136-145); Thyroid Stimulating Hormone 1.79 uIU/mL (0.36-3.74); Triglycerides 88 mg/dL (0-150)
[2024-11-08 13:41] LABS: CRP < 0.5 mg/dL (0.0-0.9)
== END 2024-11-08 12:12 | disposition home or self-care (01) ==
LOC: CHSLAB 12:14
PROVIDERS: PCP Internal Medicine; Visit Provider Internal Medicine
DX: E78.5 Hyperlipidemia, unspecified (principal); F32.A Depression, unspecified; R25.2 Cramp and spasm
CPT/HCPCS: 36415; 80053; 80061; 81003; 82085; 82550; 83735; 84100; 84443; 85027; 86140

== ENCOUNTER 2025-02-25 13:24 | Outpatient (CLI) | payer MEDICARE, MEDICAID, SELFPAY ==
--- NOTE | ~2025-02-25 | MM_ITS ---
EXAMINATION: MM screening ham BI w bret HISTORY: Screening mammogram, family history of breast cancer in her mother. TECHNIQUE: Craniocaudal and mediolateral oblique 3-D tomosynthesis images were obtained and synthetic 2-D images were generated. CAD analysis was submitted and interpreted. COMPARISON: 03/04/2023, 11/16/2021, 07/30/2019 BREAST PARENCHYMAL COMPOSITION:Not Dense. There are scattered areas of fibroglandular density. FINDINGS: No suspicious mass, calcification, or architectural distortion are identified in either jamal ast to suggest malignancy. There has been no suspicious interval change. IMPRESSION: No mammographic evidence of malignancy. Recommend routine screening mammography in one year. BI-RADS Category 1: Negative Reviewed, dictated and finalized at location .
--- NOTE | ~2025-02-25 | DEXA_ITS ---
Bone Density Report Name: MARCEL KHAN Age: 64 Sex: Female Ethnicity: White Date of : 1960 Indication: osteopenia; height loss; inflammatory bowel disease; prior fracture; hysterectomy; rheumatoid arthritis; Referring Provider: Carter Hernandez Study: Bone densitometry was performed. Exam Date: February 25, 2025 Accession number: [id number] Bone Density: Region BMD T-score Z-score Classification AP Spine(L1, L4) 0.966 -0.6 1.1 Normal Femoral Neck (Left) 0.641 -1.9 -0.4 Osteopenia Total Hip (Left) 0.753 -1.6 -0.3 Osteopenia Femoral Neck (Right) 0.566 -2.6 -1.1 Osteoporosis Total Hip (Right) 0.736 -1.7 -0.5 Osteopenia Femoral Neck Mean 0.603 -2.2 -0.7 Osteopenia Total Hip Mean 0.744 -1.6 -0.4 Osteopenia World Health Organization criteria for BMD impression classify patients as: Normal (T-score at or above -1.0), Osteopenia (T-score between -1.0 and -2.5), or Osteoporosis (T-score at or below -2.5). 10-year Fracture Risk: FRAX not reported because: Some T-score for Spine Total or Hip Total or Femoral Neck at or below -2.5 Previous Exams: Region Exam Age BMD T-score BMD Change BMD Change Date g/cm2 vs Baseline vs Previous AP Spine (L1,L4) 02/25/2025 64 0.966 -0.6 0.045 (4.9%)* 0.045 (4.9%)* 03/22/2022 61 0.921 -1.1 Total Hip(Left) 02/25/2025 64 0.753 -1.6 -0.037 (-4.7%) -0.037 (-4.7%) 03/22/2022 61 0.790 -1.2 Total Hip(Right) 02/25/2025 64 0.736 -1.7 -0.052 (-6.6%) -0.052 (-6.6%) 03/22/2022 61 0.787 -1.3 *Denotes significance at 95% confidence level, LSC for AP Spine = 0.022 g/cm2, LSC for Total Hip = 0.027 g/cm2 Clinical Information Provided by Patient: Has had a low trauma fracture Smokes Has rheumatoid arthritis Has used the following medications: Vitamin B Has the following medical conditions: Inflammatory bowel diseases, Hysterectomy Patient maximum height was 69 Menopause Age: 50 No regular weight bearing exercise Drinks caffeinated beverages Onset of menses at age 12 Number of children 5 Impression: The patient has established osteoporosis, based on the Right Femoral Neck T-score and the existence of a prior fracture. The patient has risk factors, including: smoking, previous fracture. The BMD for the Total Hip(Left) decreased, changing by -4.7% since the last DXA exam. The BMD for the Total Hip(Right) decreased, changing by -6.6% since the last DXA exam. Discussion: HIGH RISK OF FRACTURE. BONE DENSITY IS UNDESIRABLY LOW AT ONE OR MORE SKELETAL SITES, CONSISTENT WITH POSTMENOPAUSAL OSTEOPOROSIS. This patient's lowest T-score, in a patient who has previously fractured, meets the World Health Organization's (WHO) criteria for severe osteoporosis. In untreated patients, the risk of osteoporotic fracture increases approximately two-fold for each 1.0 SD decrease in T-score. Low bone density is not the only risk factor for fracture; also consider factors such as patient's age, frailty or poor health, risk of falling, risk of injury, previous osteoporotic fracture, family history of osteoporosis, cigarette smoking, low body weight, etc. Not everyone with low bone mineral density has osteoporosis; osteomalacia and other metabolic bone disorders should also be considered. Patients who have osteoporosis should be evaluated for specific diseases and conditions (secondary causes) that may cause or contribute to bone loss. The [place] [employer] (AACE) and National Osteoporosis Foundation (NOF) recommend pharmacologic intervention for all postmenopausal women whose T-score is in this range. The patient should follow a healthful lifestyle (good nutrition with adequate calcium and vitamin D, and appropriate weight-bearing exercise). Follow-Up: Consider a repeat BMD and Vertebral Fracture Assessment (VFA) exam in 2 years or sooner if medically necessary, to reassess this patient's status. Reported by: MARY on 02/25/2025 2:06:00 PM. Reviewed, dictated and finalized at location A.
== END 2025-02-25 13:25 | disposition home or self-care (01) ==
LOC: CHSIMG 13:26
PROVIDERS: PCP Internal Medicine; Visit Provider Internal Medicine
DX: Z12.31 Encounter for screening mammogram for malignant neoplasm of breast (principal); Z78.0 Asymptomatic menopausal state; M85.89 Other specified disorders of bone density and structure, multiple sites
CPT/HCPCS: 77063; 77067; 77080

== ENCOUNTER 2025-03-21 13:47 | Outpatient (CLI) | payer MEDICARE, MEDICAID, SELFPAY ==
--- NOTE | ~2025-03-21 | US_ITS ---
US venous doppler [facility] - 03/21/2025 14:34 CDT History: 64 years old Female with bilateral lower extremity pain and swelling. Real-time sonographic images of the bilateral lower extremity venous system were obtained. Color Dop pler sonography and spectral waveform analysis were performed. No prior studies for comparison. The bilateral sapheno-femoral junctions are patent. The bilateral common femoral, superficial femor al, popliteal and posterior tibial veins are compressible and without evidence of echogenic thrombus . Impression: No evidence of deep venous thrombosis Reviewed, dictated and finalized at location A. Impression: No evidence of deep venous thrombosis
== END 2025-03-21 13:48 | disposition home or self-care (01) ==
PROVIDERS: PCP Internal Medicine; Visit Provider Internal Medicine
DX: M79.89 Other specified soft tissue disorders (principal); R79.1 Abnormal coagulation profile
CPT/HCPCS: 93970